=== PATIENT | male | born 1960 | race Caucasian/White ===

== ENCOUNTER 2022-02-17 08:43 | Day surgery (SDC) | payer MEDICARE, OTHER ==
[~2022-02-17 08:43] MED LIST: Acetaminophen 325 MG Tab PO SCH; Lidocaine 1%/Sod Bicarbonate in NS 8.4% 1 ML Syringe IDERM PRN; Morphine 8 MG, EPINEPHrine 0.3 MG, Cefuroxime 750 MG, Ketorolac 30 MG, Sodium Chloride ... PRN; Pregabalin 25 MG Cap PO SCH; Sodium Chloride 0.9% 10 ML Syringe FLUSH PRN; Sodium Chloride 0.9% 10 ML Syringe FLUSH SCH; oxyCODONE ER 10 MG TAB.ER PO SCH
[2022-02-17] MEDS ORDERED: Vancomycin 1 GM SDV ONE (08:47)
[2022-02-17] MEDS ORDERED: Propofol 200 MG/20 ML SDV ONE (08:49)
[2022-02-17] MEDS ORDERED: fentaNYL 100 MCG/2 ML SDV ONE (08:49)
[2022-02-17] MEDS ORDERED: Midazolam 1 MG/ML 2 ML SDV ONE (08:49)
[2022-02-17] MEDS ORDERED: Lidocaine 1% 5 ML VIAL ONE (08:49)
[2022-02-17] MEDS ORDERED: ceFAZolin 2 GM Vial ONE (08:51)
[2022-02-17] MEDS: Lactated Ringers 1,000 ML IV SCH ×2 (08:55→12:33)
[2022-02-17] MEDS ORDERED: Rocuronium 50 MG/5 ML Vial ONE (09:51)
[2022-02-17] MEDS ORDERED: Ondansetron 4 MG/2 ML SDV ONE (10:02)
[2022-02-17] MEDS ORDERED: HYDROmorphone 0.5 MG/0.5 ML Syringe ONE (10:02)
[2022-02-17] MEDS ORDERED: Ketamine 500 mg/10 ML MDV ONE (10:02)
[2022-02-17] MEDS ORDERED: Dexamethasone 4 MG/ML 5 ML MDV ONE (10:13)
[2022-02-17] MEDS ORDERED: fentaNYL 250 MCG/5 ML SDV ONE (10:22)
[2022-02-17] MEDS ORDERED: Lactated Ringers 1,000 ML ONE (10:25)
[2022-02-17] MEDS ORDERED: ePHEDrine 50 MG/ML SDV ONE (10:35)
[2022-02-17] MEDS ORDERED: Neostigmine Methylsulfate 10 MG/10 ML MDV ONE (10:45)
[2022-02-17] MEDS ORDERED: fentaNYL 100 MCG/2 ML SDV IVPUSH PRN (10:52)
[2022-02-17] MEDS ORDERED: HYDROmorphone 0.5 MG/0.5 ML Syringe IVPUSH PRN (10:52)
[2022-02-17] MEDS ORDERED: Ondansetron 4 MG/2 ML SDV IVPUSH PRN (10:52)
[2022-02-17] MEDS ORDERED: Ketorolac 15 MG/ML SDV ONE (11:22)
== END 2022-02-17 14:20 | disposition home or self-care (01) ==
LOC: JD.SDS 08:43
PROVIDERS: ATTEND Orthopaedic Surgery
DX: M16.11 Unilateral primary osteoarthritis, right hip (principal); I10 Essential (primary) hypertension; F41.1 Generalized anxiety disorder; M54.2 Cervicalgia; M06.9 Rheumatoid arthritis, unspecified; F32.A Depression, unspecified; Z79.82 Long term (current) use of aspirin; Z79.899 Other long term (current) drug therapy; Z98.890 Other specified postprocedural states; Z87.891 Personal history of nicotine dependence
CPT/HCPCS: 0055T; 27130; 36415; 73501; 85610; 85730; 86850; 86900; 86901; 97110; 97116; 97161; A9270; C1713; C1776; J0171; J0690; J0697; J1100; J1170; J1885; J2250; J2270; J2405; J2704; J2710; J3010; J3370; J3490; J7120; 01214